=== PATIENT | male | born 1950 | race Caucasian/White ===

== ENCOUNTER 2017-03-22 11:55 | Inpatient (IN) | payer MEDICARE, MEDICAID ==
[~2017-03-22] VITALS: Ht 170.2 cm; Wt 106.3 kg
[2017-03-22] VITALS (482 sets, daily range): BP systolic 133–153; BP diastolic 57–70; PULSE 79–83; TEMP 98–98.4; O2SAT 61–100
[~2017-03-22 11:55] MED LIST: ALBUTEROL0.83 MG/ML IH; ALDACTONE 100M100 MG PO; ASPI325T6 PO; DITROPAN XL 5MG5 M1 PO; ELIQUIS 5MG PO; ENULOSE10 GM/151 PO; FLOMAX 0.40.4 MG/CAP PO; GLUCOSE4 GM PO; IBU600 MG PO; INDERAL 10MG10 MG PO; INDERAL 20MG20 MG PO; LASIX 20MG TABL20 MG PO; LASIX 40MG TABL40 MG PO; LEVEMIR SC; LEVEMIR SQ; LEVEMIR100 U/ML SQ; MAG-OX 400400 MG/TAB PO; MOTRIN 600600 MG/TAB PO; MULTIVITAMIN PO; NEURONTIN300 MG/CAP PO; NORVASC 5MG5 MG/TAB PO; NOVLOG SC; NOVLOG SQ; NOVOLOG 100U100 U/M1 SQ; PEPCID 20MG TAB20 MG PO; PLAVIX 75MG TAB75 MG PO; PRILOSEC 20MG20 MG PO; PRILOTC PO; PRINIVIL2.5 MG PO; PRINIVIL5 MG PO; ROXANOL 20MG20 MG/ML SL; THERA VITE M1 TAB PO; TRANSDERM-0.5 MG/21 TD; VENTOLIN0.09 MG IH; XIFAXAN550 MG PO; ZOFRAN ODT4 MG PO; ZOLOFT 100MG100 MG PO
[2017-03-22 14:39] LABS: INR 1.6 (0.8-3.0); PROTHROMBIN TIME 18.3 SECONDS (9.7-12.8)
[2017-03-22 14:44] LABS: ARTERIAL BLD GAS O2 SATURATION 97.8 % (92-100); ARTERIAL BLOOD GAS BASE EXCESS 6.6 (-2-2); ARTERIAL BLOOD GAS HCO3 32.4 meq/L (22-26); ARTERIAL BLOOD GAS pH 7.41 (7.35-7.45); OXYHEMOGLOBIN 97.1 %
[2017-03-22 14:45] LABS: BASO % 0.2 % (0.0-2.0); EOS # 0.1 (0.0-0.7); EOS % 0.9 % (0-4.0); GRAN # 9.8 (1.4-6.5); GRAN % 88.3 % (42.2-75.2); LYMPH # 0.3 (1.2-3.4); LYMPH % 2.7 % (20.0-51.0); MEAN CELL VOLUME 95 fl (80.0-100.0); MEAN CORPUSCULAR HGB CONC 30 g/dl (33.0-37.0); MEAN PLATELET VOLUME 13.5 fl (7.4-10.4); MONO # 0.8 (0.1-0.6); MONO % 7.5 % (1.7-9.3); PLATELET COUNT 75 K/mm3 (130-400); RED BLOOD COUNT 3.78 M/mm3 (4.20-5.60); WHITE BLOOD COUNT 11.1 K/mm3 (4.8-10.8)
[2017-03-22 14:45] LABS: ATS? YES
[2017-03-22 14:46] LABS: HEMATOCRIT 35.8 % (42.0-52.0); HEMOGLOBIN 10.9 g/dl (13.5-18.0); MEAN CORPUSCULAR HEMOGLOBIN 29 pg (27.0-31.0)
[2017-03-22 14:55] LABS: ADJUSTED CALCIUM 9.3 mg/dL (8.4-10.2); BILIRUBIN,TOTAL 1.1 mg/dL (0.0-1.0); CALCIUM 8.5 mg/dL (8.4-10.2); CREATININE, serum 1.2 mg/dL (0.66-1.25); POTASSIUM 3.4 mmol/L (3.4-5.0); TOTAL PROTEIN 6.8 gm/dL (6.4-8.2)
[2017-03-22] MEDS ORDERED: TYLENOL 8 HR PO (15:06)
[2017-03-22 15:17] LABS: TROPONIN-I 0.744 ng/mL (0.000-0.034)
[2017-03-22] MEDS ORDERED: LOVENOX 4040 MG/0.4 SQ (16:09)
[2017-03-22] MEDS ORDERED: VITAMINC500CH PO (16:09)
[2017-03-22] MEDS ORDERED: PEPCID 20M20 MG/2 ML IV (16:10)
[2017-03-22] MEDS ORDERED: FLUCONAZOL100 MG/51 IV (16:11)
[2017-03-22] MEDS ORDERED: FENTANYL 25 MCG TD (16:11)
[2017-03-22] MEDS ORDERED: LASIX 40MG TABL40 MG PO (16:12)
[2017-03-22] MEDS ORDERED: NEURONTIN100 MG/CAP PO (16:13)
[2017-03-22] MEDS ORDERED: LANTUS100 U/ML SQ (16:13)
[2017-03-22] MEDS ORDERED: HUMALOG100 U/ML SQ (16:14)
[2017-03-22] MEDS ORDERED: CONSTULOSE 20G/30ML (16:15)
[2017-03-22] MEDS ORDERED: LEVAQUIN 7750 MG/151 IV (16:16)
[2017-03-22] MEDS ORDERED: ZOLOFT 100MG100 MG PO (16:17)
[2017-03-22] MEDS ORDERED: PRINIVIL10 MG PO (16:17)
[2017-03-22] MEDS ORDERED: ALDACTONE 25MG25 M1 PO (16:18)
[2017-03-22] MEDS ORDERED: VANCOCIN HCL1 GM IV (16:18)
[2017-03-22] MEDS ORDERED: ZINC SO4 PO (16:19)
[2017-03-22] MEDS ORDERED: OXY IR5 MG PO (16:20)
[2017-03-22] MEDS ORDERED: RT ALBUTER2.5 MG/0.5 IH (16:20)
[2017-03-22] MEDS ORDERED: LASIX 100M100 MG/10 IJ (16:21)
[2017-03-22] MEDS ORDERED: CENA K40 MEQ/15 PO (16:22)
[2017-03-23] VITALS (1171 sets, daily range): BP systolic 119–161; BP diastolic 49–68; PULSE 65–676; TEMP 97–98.5; O2SAT 80–100
[2017-03-23 04:41] LABS: ARTERIAL BLD GAS TCO2 CT 32.7; ARTERIAL BLOOD GAS HCO3 31.1 meq/L (22-26); ARTERIAL BLOOD GAS PHT 7.38 C (7.35-7.45); ARTERIAL BLOOD GAS PO2 91.8 mmHg (80-100); ARTERIAL BLOOD GAS PO2T 91.8 (80-100); ARTERIAL BLOOD GAS pH 7.38 (7.35-7.45); OXYHEMOGLOBIN 95.2 %
[2017-03-23 04:42] LABS: BASO % 0.1 % (0.0-2.0); EOS # 0.1 (0.0-0.7); EOS % 1.6 % (0-4.0); GRAN # 6.6 (1.4-6.5); GRAN % 85.5 % (42.2-75.2); INR 1.7 (0.8-3.0); LYMPH # 0.3 (1.2-3.4); LYMPH % 4.4 % (20.0-51.0); MEAN CELL VOLUME 95 fl (80.0-100.0); MEAN CORPUSCULAR HGB CONC 30 g/dl (33.0-37.0); MEAN PLATELET VOLUME 13.1 fl (7.4-10.4); MONO # 0.6 (0.1-0.6); MONO % 7.9 % (1.7-9.3); PLATELET COUNT 56 K/mm3 (130-400); PROTHROMBIN TIME 18.7 SECONDS (9.7-12.8); RED BLOOD COUNT 3.42 M/mm3 (4.20-5.60); WHITE BLOOD COUNT 7.7 K/mm3 (4.8-10.8)
[2017-03-23 04:42] LABS: ALLEN TEST NO; ATS? YES
[2017-03-23 04:43] LABS: ADJUSTED CALCIUM 9.5 mg/dL (8.4-10.2); ALBUMIN 2.3 gm/dL (3.5-5.0); BILIRUBIN,TOTAL 0.9 mg/dL (0.0-1.0); CALCIUM 8.1 mg/dL (8.4-10.2); CREATININE, serum 1.24 mg/dL (0.66-1.25); POTASSIUM 3.5 mmol/L (3.4-5.0); TOTAL PROTEIN 5.8 gm/dL (6.4-8.2)
[2017-03-23 04:49] LABS: HEMATOCRIT 32.6 % (42.0-52.0); HEMOGLOBIN 9.8 g/dl (13.5-18.0); MEAN CORPUSCULAR HEMOGLOBIN 29 pg (27.0-31.0)
[2017-03-23 09:54] LABS: FIBRINOGEN 385 mg/dL (200-450)
[2017-03-23 22:11] LABS: MAGNESIUM 1.9 mg/dL (1.6-2.3); PHOSPHOROUS 4.9 mg/dL (2.5-4.5); POTASSIUM 3.9 mmol/L (3.4-5.0)
[2017-03-24] VITALS (1363 sets, daily range): BP systolic 111–134; BP diastolic 47–80; PULSE 62–71; TEMP 97.4–98.9; O2SAT 70–99
[2017-03-24 05:48] LABS: BASO % 0.2 % (0.0-2.0); EOS # 0.2 (0.0-0.7); EOS % 1.9 % (0-4.0); GRAN # 7.6 (1.4-6.5); GRAN % 86.9 % (42.2-75.2); LYMPH # 0.3 (1.2-3.4); LYMPH % 3.5 % (20.0-51.0); MEAN CELL VOLUME 95 fl (80.0-100.0); MEAN CORPUSCULAR HGB CONC 30 g/dl (33.0-37.0); MEAN PLATELET VOLUME 13.5 fl (7.4-10.4); MONO # 0.6 (0.1-0.6); MONO % 7.3 % (1.7-9.3); PLATELET COUNT 53 K/mm3 (130-400); RED BLOOD COUNT 3.32 M/mm3 (4.20-5.60); WHITE BLOOD COUNT 8.7 K/mm3 (4.8-10.8)
[2017-03-24 05:50] LABS: HEMATOCRIT 31.6 % (42.0-52.0); HEMOGLOBIN 9.6 g/dl (13.5-18.0); MEAN CORPUSCULAR HEMOGLOBIN 29 pg (27.0-31.0)
[2017-03-24 06:15] LABS: ADJUSTED CALCIUM 9.1 mg/dL (8.4-10.2); ALBUMIN 2.4 gm/dL (3.5-5.0); BILIRUBIN,TOTAL 0.9 mg/dL (0.0-1.0); CALCIUM 7.8 mg/dL (8.4-10.2); CREATININE, serum 1.36 mg/dL (0.66-1.25); POTASSIUM 3.6 mmol/L (3.4-5.0); TOTAL PROTEIN 5.8 gm/dL (6.4-8.2)
[2017-03-25] VITALS (1246 sets, daily range): BP systolic 110–129; BP diastolic 44–82; PULSE 64–74; TEMP 97–98.5; O2SAT 79–98
[2017-03-25 05:32] LABS: BASO % 0.3 % (0.0-2.0); EOS # 0.2 (0.0-0.7); EOS % 1.9 % (0-4.0); GRAN # 6.6 (1.4-6.5); GRAN % 84.4 % (42.2-75.2); LYMPH # 0.4 (1.2-3.4); LYMPH % 4.8 % (20.0-51.0); MEAN CELL VOLUME 97 fl (80.0-100.0); MEAN CORPUSCULAR HGB CONC 30 g/dl (33.0-37.0); MEAN PLATELET VOLUME 14.3 fl (7.4-10.4); MONO # 0.6 (0.1-0.6); PLATELET COUNT 51 K/mm3 (130-400); RED BLOOD COUNT 3.35 M/mm3 (4.20-5.60); WHITE BLOOD COUNT 7.9 K/mm3 (4.8-10.8)
[2017-03-25 05:35] LABS: HEMATOCRIT 32.4 % (42.0-52.0); HEMOGLOBIN 9.7 g/dl (13.5-18.0); MEAN CORPUSCULAR HEMOGLOBIN 29 pg (27.0-31.0)
[2017-03-25 06:03] LABS: ADJUSTED CALCIUM 9.2 mg/dL (8.4-10.2); ALBUMIN 2.2 gm/dL (3.5-5.0); BILIRUBIN,TOTAL 0.8 mg/dL (0.0-1.0); CALCIUM 7.8 mg/dL (8.4-10.2); CREATININE, serum 1.62 mg/dL (0.66-1.25); POTASSIUM 3.9 mmol/L (3.4-5.0); TOTAL PROTEIN 5.6 gm/dL (6.4-8.2)
[2017-03-26] VITALS (1413 sets, daily range): BP systolic 117–181; BP diastolic 38–71; PULSE 62–71; TEMP 97–98.6; O2SAT 64–100
[2017-03-26 04:56] LABS: BASO % 0.3 % (0.0-2.0); EOS # 0.1 (0.0-0.7); EOS % 1.3 % (0-4.0); GRAN # 6.6 (1.4-6.5); LYMPH # 0.3 (1.2-3.4); LYMPH % 4.2 % (20.0-51.0); MEAN CELL VOLUME 98 fl (80.0-100.0); MEAN CORPUSCULAR HGB CONC 29 g/dl (33.0-37.0); MEAN PLATELET VOLUME 14.3 fl (7.4-10.4); MONO # 0.5 (0.1-0.6); MONO % 6.7 % (1.7-9.3); PLATELET COUNT 51 K/mm3 (130-400); REDCELL DISTRIBUTION WIDTH-CV 16.2 % (11.5-14.5); WHITE BLOOD COUNT 7.6 K/mm3 (4.8-10.8)
[2017-03-26 04:59] LABS: HEMATOCRIT 34.2 % (42.0-52.0); MEAN CORPUSCULAR HEMOGLOBIN 29 pg (27.0-31.0)
[2017-03-26 05:07] LABS: ADJUSTED CALCIUM 9.1 mg/dL (8.4-10.2); ALBUMIN 2.4 gm/dL (3.5-5.0); BILIRUBIN,TOTAL 0.9 mg/dL (0.0-1.0); CALCIUM 7.8 mg/dL (8.4-10.2); CREATININE, serum 1.8 mg/dL (0.66-1.25); TOTAL PROTEIN 5.8 gm/dL (6.4-8.2)
[2017-03-27] VITALS (1411 sets, daily range): BP systolic 118–130; BP diastolic 43–50; PULSE 59–68; TEMP 97.5–98.2; O2SAT 79–99
[2017-03-27 06:36] LABS: B-TYPE NATRIURETIC PEPTIDE 3770 pg/mL (0-125)
[2017-03-27 07:12] LABS: AMMONIA 19 umol/L (11-35)
[2017-03-28] VITALS (423 sets, daily range): BP systolic 116–130; BP diastolic 40–50; PULSE 65–77; TEMP 97.7–98.1; O2SAT 83–98
== END 2017-03-28 13:30 | disposition expired | DRG 871 ==
LOC: ICU 11:55 → IMCU 03-23 20:08
PROVIDERS: Family Medicine; Internal Medicine; Internal Medicine Pulmonary Disease; Nurse Practitioner Family
PROC: 02HV33Z Insertion of Infusion Device into Superior Vena Cava, Percutaneous Approach (ICD-10-PCS; principal; 2017-03-22)
DX: A41.9 Sepsis, unspecified organism (principal); J96.01 Acute respiratory failure with hypoxia; I21.4 Non-ST elevation (NSTEMI) myocardial infarction; J69.0 Pneumonitis due to inhalation of food and vomit; K55.032 Diffuse acute (reversible) ischemia of large intestine; I50.32 Chronic diastolic (congestive) heart failure; E44.0 Moderate protein-calorie malnutrition; E87.3 Alkalosis; Z66 Do not resuscitate; I25.10 Atherosclerotic heart disease of native coronary artery without angina pectoris; I11.0 Hypertensive heart disease with heart failure; Z95.1 Presence of aortocoronary bypass graft; E11.649 Type 2 diabetes mellitus with hypoglycemia without coma; K70.31 Alcoholic cirrhosis of liver with ascites; K70.40 Alcoholic hepatic failure without coma; Z87.891 Personal history of nicotine dependence; D69.6 Thrombocytopenia, unspecified
CPT/HCPCS: 99232-AI; 99233-AI; 99239; A4217; C1751; J1170; J1644; J1650; J1815; J1940; J1956; J2060; J2270; J2543; J3010; J3370; J7030; J7050; J7060; J7131; Q9967